=== PATIENT | female | born 1940 | race Caucasian/White ===

== ENCOUNTER → 2016-12-12 | Outpatient (CLI) | payer MEDICARE, OTHER ==
[~2016-12-12] MED LIST: AMLO10TA PO; AMLO10TA2 PO; ASPI325T PO; ASPI32ECTA PO; FISH1000 PO; HYDR-3713 PO; INSUDET SC; KEPP250T5 PO; LEVE1INJ5 SC; LEVE750T5 PO; LIPI80TA PO; LOSA100T37 PO; LOSA25TA8 PO; METF1000 PO; METO100T PO; METO50TA2 PO; RANI150T PO; VANC125C2 PO; VITMTA PO
--- NOTE | 2016-12-12 12:34 | REP ---
RENAL ULTRASOUND WITH DUPLEX DOPPLER RENAL ARTERY EVALUATION: Real-time sonographic evaluation of the kidneys is performed. The left kidney is smaller than the right. The right kidney measures 9.6 x 4.1 x 3.6 cm and the left kidney 8.8 x 4.1 x 5.0 cm. There is no hydronephrosis bilaterally. Extrarenal pelvis is seen on the right. A cyst in the mid right kidney measures 6 mm in diameter and the lower pole 1.4 cm in diameter. There is a cyst in the lower pole of the left kidney 8 x 6 x 4 mm. Calcified blood vessels are seen in both kidneys. Ultrasound evaluation and duplex Doppler interrogation of the renal arteries is performed bilaterally. Peak systolic velocity of the abdominal aorta at the level of the renal arteries is 79.8 cm/s . Peak systolic velocity of the main right renal artery is in the mid aspect 120 cm/s, renal or aortic ratio is 1.5. Resistive indices are measured in the upper, middle and lower thirds of the right kidney and range between 0.76 and 0.82. Acceleration times range between 0.028 and 0.048. Peak systolic velocity of the main left renal artery is in the mid aspect 96.1 cm/s, renal to aortic ratio is 1.2. Resistive indices left kidney range between 0.75 and 0.82. Acceleration times range between 0.031 and 0.047. IMPRESSION: No hydronephrosis. Bilateral renal cysts. No compelling duplex Doppler or sonographic evidence of significant renal artery stenosis. Signed by Jefe Feldman MD 12/12/2016 01:00 P
== END ==
LOC: M RAD 09:16
PROVIDERS: ATTEND Internal Medicine Cardiovascular Disease
DX: I10 Essential (primary) hypertension (principal); N28.1 Cyst of kidney, acquired

== ENCOUNTER → 2017-02-11 | Outpatient (REF) | payer OTHER ==
[~2017-02-11] MED LIST changes: +ASPI325T24 PO; -ASPI32ECTA PO; -LOSA100T37 PO; +LOSA100T5 PO; -METF1000 PO; +METF10004 PO; -METO100T PO; +METO100T5 PO; -METO50TA2 PO; +METO50TA7 PO
[2017-02-11 15:50] LABS: CALCIUM LEVEL 9.7 MG/DL (8.8-10.2); GLOMERULAR FILTRATION RATE 25.7 (>39)
[2017-02-11 15:52] LABS: POTASSIUM SERUM 5.5 MEQ/L (3.5-5.1)
[2017-02-11 15:56] LABS: ADD MANUAL DIFFER YES; MEAN CORPUSCULAR HEMOGLOBIN 28.2 pg (27.0-33.0); MEAN CORPUSCULAR HGB CONC 34.2 g/dl (32.0-36.5); MEAN CORPUSCULAR VOLUME 82.3 fl (80.0-96.0); PLATELET COUNT, AUTOMATED 327 k/mm3 (150-450); RED CELL DISTRIBUTION WIDTH 17.5 % (11.5-14.5); WHITE BLOOD COUNT 13.6 K/mm3 (4.0-10.0)
[2017-02-11 17:49] LABS: BASOPHILS 1 % (0-4); EOSINOPHILS 3 % (0-5); OVALOCYTES 1+; POIKILOCYTOSIS 2+; SCHISTOCYTES 2+
[2017-02-11 17:51] LABS: ACANTHOCYTES 2+; BURR CELLS 1+; POLYCHROMASIA 1+
[2017-02-11 17:52] LABS: ANISOCYTOSIS 1+
== END ==
LOC: M SFHCLACO 09:46
PROVIDERS: ATTEND Physician Assistant
DX: D72.829 Elevated white blood cell count, unspecified (principal); E87.5 Hyperkalemia

== ENCOUNTER → 2017-04-22 | Outpatient (REF) | payer OTHER ==
[2017-04-22 16:35] LABS: ALBUMIN 4.1 GM/DL (3.2-5.2); ALBUMIN/GLOBULIN RATIO 1.14 (1.00-1.93); BILIRUBIN,TOTAL 0.4 MG/DL (0.2-1.0); CALCIUM LEVEL 9.2 MG/DL (8.8-10.2); CREATININE FOR GFR 2.41 MG/DL (0.55-1.02); GLOMERULAR FILTRATION RATE 20.7 (>39); TOTAL PROTEIN 7.7 GM/DL (6.4-8.2)
[2017-04-22 16:37] LABS: POTASSIUM SERUM 5.9 MEQ/L (3.5-5.1)
== END ==
LOC: M SFHCLACO 10:25
PROVIDERS: ATTEND Physician Assistant
DX: E11.65 Type 2 diabetes mellitus with hyperglycemia (principal); E78.2 Mixed hyperlipidemia; I10 Essential (primary) hypertension; R80.9 Proteinuria, unspecified; E55.9 Vitamin D deficiency, unspecified; D72.829 Elevated white blood cell count, unspecified; K85.90 Acute pancreatitis without necrosis or infection, unspecified; E87.5 Hyperkalemia; M25.512 Pain in left shoulder

== ENCOUNTER → 2017-08-21 | Outpatient (REF) | payer OTHER ==
[2017-08-21 15:02] LABS: BASO # 0.3 10^3/uL (0.0-0.2); BASO % 1.6 % (0.0-1.0); EOS # 0.3 10^3/uL (0.0-0.50); IMMATURE GRANULOCYTE % 3.6 % (0-0); LYMPH # 0.8 10^3/uL (1.5-4.5); LYMPH % 4.6 % (24.0-44.0); MEAN CORPUSCULAR HEMOGLOBIN 26.8 pg (27.0-33.0); MEAN CORPUSCULAR HGB CONC 31.3 g/dl (32.0-36.5); MEAN CORPUSCULAR VOLUME 85.7 fl (80.0-96.0); NEUTROPHILS # 14.2 10^3/uL (1.8-7.7); NEUTROPHILS % 82.2 % (36.0-66.0); PLATELET COUNT, AUTOMATED 363 10^3/uL (150-450); RED CELL DISTRIBUTION WIDTH 18.6 % (11.5-14.5); WHITE BLOOD COUNT 17.3 10^3/uL (4.0-10.0)
== END ==
LOC: M SFHCLACO 09:41
PROVIDERS: ATTEND Physician Assistant
DX: D72.829 Elevated white blood cell count, unspecified (principal)